=== PATIENT | male | born 1940 | race Asian ===

== ENCOUNTER 2020-11-06 19:01 | Emergency (ER) | payer MEDICAID ==
[~2020-11-06] VITALS: Ht 167.6 cm; Wt 68.2 kg
[2020-11-06] MEDS ORDERED: AMOX250T PO (19:22)
[2020-11-06 20:57] VITALS: BP 130/85
[2020-11-06 20:57] LABS: BASOPHILS % (AUTO) 1.3 % (0.0-2.0); EOSINOPHILS % (AUTO) 1.8 % (1.0-6.0); HEMATOCRIT 43.6 % (41-53); HEMOGLOBIN 15.1 g/dL (13.5-17.5); LYMPHOCYTES # (AUTO) 1.3 K/uL (1.0-4.8); LYMPHOCYTES % (AUTO) 20.9 % (22.0-44.0); MEAN CORPUSCULAR HEMOGLOBIN 32.8 pg (26.0-34.0); MEAN CORPUSCULAR HGB CONC 34.6 G/dL (31.0-37.0); MEAN CORPUSCULAR VOLUME 95 fL (80-100); MONOCYTES # (AUTO) 0.4 K/uL (0.1-1.0); MONOCYTES % (AUTO) 6.6 % (2.0-9.0); NEUTROPHILS # (AUTO) 4.2 K/uL (1.8-7.7); NEUTROPHILS % (AUTO) 69.4 % (40.0-70.0); PLATELET COUNT (AUTO) 252 K/uL (150-450); RED BLOOD CELL COUNT(AUTO) 4.59 MIL/uL (4.50-5.90); RED CELL DISTRIBUTION WIDTH 12.7 % (11.5-14.5)
[2020-11-06 21:08] LABS: PROTHROMBIN TIME 10.5 SEC (9.4-11.6)
[2020-11-06] MEDS ORDERED: PETROLATUM,WHITE 5 GM PACKET JELLY TP ONE (21:15)
[2020-11-06] MEDS ORDERED: OXYMETAZOLINE HCL 0.05% 15 ML NASAL SPRAY NASAL ONE (21:15)
[2020-11-06] MEDS ORDERED: SILVER NITRATE APPLICATOR 1 EA STICK TP ONE (21:30)
== END 2020-11-06 22:03 | disposition home or self-care (01) ==
LOC: EMS 19:01
DX: R04.0 Epistaxis (principal)
CPT/HCPCS: 30901; 99284